=== PATIENT | male | born 1985 | race Caucasian/White ===

== ENCOUNTER 2022-03-14 07:26 | Emergency (ER) | payer SELFPAY ==
[~2022-03-14] VITALS: Ht 177.8 cm; Wt 100.0 kg
[2022-03-14 07:33] VITALS: BP 183/125
[2022-03-14] MEDS ORDERED: MORPHINE SULFATE 4 MG/ML CPJ (NOT FOR IM USE) IV STA (07:33)
[2022-03-14] MEDS ORDERED: ONDANSETRON HCL 4MG/2ML INJ IV STA (07:33)
[2022-03-14 08:05] LABS: BASOPHILS % 0.5 % (0.0-2.0); EOSINOPHILS % 2.3 % (0.0-5.0); HEMATOCRIT. 50.1 % (42.0-52.0); HEMOGLOBIN. 17.1 g/dL (14.0-18.0); LYMPHOCYTES % 18.2 % (20.0-50.0); MEAN PLATELET VOLUME 8.1 fl (7.4-10.4); MONOCYTES % 9.2 % (2.0-8.0); NEUTROPHILS % 69.8 % (40.0-76.0); PLATELET 306 x1000/uL (130-400); RED CELL DISTRIBUTION WIDTH 13.5 % (11.6-14.6)
[2022-03-14 08:17] LABS: CHLORIDE 108 mEq/L (98-107)
[2022-03-14 08:21] LABS: ETHANOL BLOOD < 10 mg/dL
== END 2022-03-14 09:24 | disposition left against medical advice (07) ==
LOC: ER 08:29
DX: R10.13 Epigastric pain (principal); R79.89 Other specified abnormal findings of blood chemistry; I10 Essential (primary) hypertension; Z98.890 Other specified postprocedural states
CPT/HCPCS: 36415; 71045; 80053; 80320; 83605; 83880; 84484; 85025; 93005; 99285; G0480